=== PATIENT | female | born 1995 | race African-American/Black ===

== ENCOUNTER 2020-05-05 19:55 | Emergency (ER) | payer OTHER, SELFPAY ==
[2020-05-05 19:58] VITALS: BP 156/89; PULSE 99; RESP 20; TEMP 37.2; O2SAT 100
--- NOTE | 2020-05-05 20:11 | ED.GENADULT ---
HPI - General Adult General Chief complaint: Eye Problems Stated complaint: Eye swelling Time Seen by Provider: 05/05/20 20:03 History of Present Illness HPI narrative: Patient is a 24-year-old female who presents ER with left upper lid swelling. Woke up this morning and noticed a little bit of edema to her upper lid and it has since become more red today. No change in vision. No pain with moving her eye or eyelid. Has mild discomfort near the eyebrow on the left side. No drainage. She did wear some fake eyelashes yesterday may contributed to this. Review of Systems Eyes: Eyes: Denies change in vision and Denies photophobia Comments: eyelid swelling ENT: Denies nasal congestion and Denies sore throat PMFSH Past Medical History Medical History (Updated 05/05/20 @ 20:24 by Edmond Lion MD) Healthy female adult Surgical History Surgical History (Updated 05/05/20 @ 20:21 by Edmond Lion MD) No history of previous surgery Social History Social History (Updated 05/05/20 @ 20:21 by Edmond Lion MD) Tobacco type: e-cigarettes/vaping Gender identity (if verbalized by the patient): Female Exam Narrative: Exam Narrative: GENERAL: Well-appearing, well-nourished, and in no acute distress. HEAD: Normocephalic, atraumatic. EYES: PERRL and EOMI. left upper lid swelling. Lid eversion performed no evidence of clogged tear duct. There is some dry skin lateral aspect of the upper lid. Normal lower lid. Eyebrow normal appearance without evidence of infected hair follicle. NEURO: Alert and oriented x3. PSYCH: Normal mood and affect. Course Course Emergency Course: Discharge home with doxycycline and recommendations for eyelid care. Vital Signs Vital signs: Vital Signs Temperature 98.9 F 05/05/20 19:58 Pulse Rate 99 05/05/20 19:58 Respiratory Rate 20 05/05/20 19:58 Blood Pressure 156/89 H 05/05/20 19:58 Pulse Oximetry 100 05/05/20 19:58 Temperature 98.9 F 05/05/20 19:58 Pulse Rate 99 05/05/20 19:58 Respiratory Rate 20 05/05/20 19:58 Blood Pressure 156/89 H 05/05/20 19:58 Pulse Oximetry 100 05/05/20 19:58 Medical Decision Making Vital Signs Vital Signs: Vital Signs Temperature 98.9 F 05/05/20 19:58 Pulse Rate 99 05/05/20 19:58 Respiratory Rate 20 05/05/20 19:58 Blood Pressure 156/89 H 05/05/20 19:58 Pulse Oximetry 100 05/05/20 19:58 Temperature 98.9 F 05/05/20 19:58 Pulse Rate 99 05/05/20 19:58 Respiratory Rate 20 05/05/20 19:58 Blood Pressure 156/89 H 05/05/20 19:58 Pulse Oximetry 100 05/05/20 19:58 Discharge Plan Discharge Clinical Impression: Blepharitis of eyelid of left eye Patient Disposition: Home, Self-Care Condition: Stable Instructions: Antibiotic Form, Blepharitis (ED) Additional Instructions: Make sure to cleanse her eyelid. Apply warm compresses to help encourage any drainage from a clogged tear duct that may be causing your symptoms. Take the oral antibiotics to help with potential secondary infection. Follow-up with an eye physician. Return to the ER if she cannot see, you have pus draining from your eye, you have additional concerns. Prescriptions: New doxycycline monohydrate 100 mg capsule 100 mg PO BID Qty: 14 RF: 0 Follow-up/Referrals: PHYSICIAN NOT ON STAFF,NONSTAFF [Primary Care Provider] - 1 Week
== END 2020-05-05 20:51 | disposition home or self-care (01) ==
LOC: ANHED 20:37
PROVIDERS: Emergency Provider Emergency Medicine
DX: H01.004 Unspecified blepharitis left upper eyelid (principal)
CPT/HCPCS: 99283